=== PATIENT | female | born 2000 | race Caucasian/White ===

== ENCOUNTER 2020-11-26 01:16 | Emergency (ER) | payer OTHER, SELFPAY ==
--- NOTE | ~2020-11-26 | XR_ITS ---
EXAMINATION: XR chest 1V DATE: 11/26/2020 02:20 INDICATION: Dizziness. TECHNIQUE: A single frontal view of the chest was obtained. COMPARISON: None. FINDINGS: The chest demonstrates clear lungs without pneumonia, pleural effusion, or pneumothorax. Th e heart size is normal. IMPRESSION: 1. No acute cardiopulmonary disease. Reviewed, dictated and finalized at location A. E SCENE PHOTOGRAPHER
--- NOTE | ~2020-11-26 | CT_ITS ---
EXAMINATION: CT brain wo con DATE: 11/26/2020 02:17 INDICATION: Dizziness. TECHNIQUE: Computed tomography (CT) of the head was performed without intravenous contrast. The mA wa s adjusted according to patient size. Iterative reconstruction technique was employed. The dose-lengt h product was 605.33 mGy-cm. COMPARISON: None FINDINGS: There is no intracranial hemorrhage, acute infarction, or abnormal intracranial mass lesion . The ventricles are normal in size. There is mild mucosal thickening in the ethmoid sinuses. The orb its are normal. The mastoid air cells are normal. IMPRESSION: 1. Normal brain. Reviewed, dictated and finalized at location A. AL TECH IMPRESSION: 1. Normal brain.
[2020-11-26 01:17] VITALS: BP 140/93; PULSE 89; RESP 22; TEMP 36.8; O2SAT 100
[2020-11-26 01:23] VITALS: PULSE 81
--- NOTE | 2020-11-26 01:59 | ECG_ITS ---
Measurements Intervals [place] Rate: 60 P: 45 PA: 134 QRS: 24 QRSD: 86 T: 7 QT: 384 QTc: 384 Interpretive Statements SINUS RHYTHM EARLY PRECORDIAL R/S TRANSITION BORDERLINE ST-T WAVE ABNORMALITY- INFERIOR LEADS BASELINE ARTIFACT- I, III, AVR, AVL, AVF BORDERLINE ECG Electronically Signed On 11-26-2020 7:07:05 TONE ARTIST APPRENTICE by Octavio Arias D.O.
--- NOTE | 2020-11-26 02:00 | ED.GENADULT ---
HPI - General Adult General Chief complaint: Seizure Stated complaint: headache/ felt a seizure coming on Source: RN notes reviewed History of Present Illness HPI narrative: Patient presents emergency department from work for dizziness. Patient states approximate 7:00 tonight she began to have a headache as well as dizziness with the room spinning. She states the room spinning sensation is worse with certain movements and ambulation is better with laying down. Patient states she had been feeling fine prior to that she denies any fevers or chills vision changes chest pain shortness of breath, numbness or tingling in the extremities abdominal pain nausea vomiting or any other symptoms. 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 She states she has been under increased stress recently and there was no reported tonic-clonic activity at the work environment denies any other symptoms at this Related Data Allergies Allergy/AdvReac Type Severity Reaction Status Date / Time amoxicillin [From Augmentin] Allergy Anaphylaxis Verified 11/26/20 01:24 clavulanic acid Allergy Anaphylaxis Verified 11/26/20 01:24 [From Augmentin] Review of Systems Review of Systems: Narrative: Gen.: Denies fevers or chills Eyes: Denies eye pain or visual change ENT: Denies congestion Respiratory: Denies shortness of breath or cough CV: Denies chest pain or palpitations GI: Denies abdominal pain nausea, emesis or diarrhea denies burning, urgency, frequency or hematuria Musculoskeletal: Denies back pain or muscle pain Neuro: See HPI Skin: Denies rash Except as documented, all other systems reviewed and negative [facility] Past Medical History Medical History (Updated 11/26/20 @ 04:21 by Jeremiah Ballard DO) Pseudoseizures Social History Social History (Updated 11/26/20 @ 02:01 by Jeremiah Ballard DO) Smoking status: Never smoker Exam Narrative: Exam Narrative: APPEARANCE: No acute distress, nontoxic, resting in bed HEENT: Normocephalic, atraumatic, OMM, TMs clear bilaterally EYES: PERRL, EOMI NECK: Supple, nontender, full range of motion without pain, no meningismus RESPIRATORY: No respiratory distress, clear to auscultation bilaterally with no rhonchi wheezing or rales CARDIOVASCULAR: RRR s murmur ABDOMINAL: Soft, nontender, nondistended MUSCULOSKELETAL: Moves all extremities. No clubbing, cyanosis or edema. NEURO: A and O ?3, following commands, speech normal, no facial droop,muscle strength 5 out of 5 bilateral upper and lower extremities SKIN:: Warm, dry. Normal Color PSYCHIATRIC: Normal affect/mood Course Course Emergency Course: Patient states she is feeling much better at this time states that headache and dizziness have resolved Discussed with patient results of workup and diagnosis. Discussed need for follow-up with primary care, proper use of medication, and reasons to return to the emergency department. Patient understands and agrees to current treatment plan Vital Signs Vital signs: Vital Signs Temperature 98.3 F 11/26/20 01:17 Pulse Rate 89 11/26/20 01:17 Respiratory Rate 22 H 11/26/20 01:17 Blood Pressure 140/93 H 11/26/20 01:17 Pulse Oximetry 100 11/26/20 01:17 Temperature 98.3 F 11/26/20 01:17 Pulse Rate 81 11/26/20 01:23 Respiratory Rate 22 H 11/26/20 01:17 Blood Pressure 140/93 H 11/26/20 01:17 Pulse Oximetry 100 11/26/20 01:17 Medical Decision Making Vital Signs Vital Signs: Vital Signs Temperature 98.3 F 11/26/20 01:17 Pulse Rate 89 11/26/20 01:17 Respiratory Rate 22 H 11/26/20 01:17 Blood Pressure 140/93 H 11/26/20 01:17 Pulse Oximetry 100 11/26/20 01:17 Temperature 98.3 F 11/26/20 01:17 Pulse Rate 81 11/26/20 01:23 Respiratory Rate 22 H 11/26/20 01:17 Blood Pressure 140/93 H 11/26/20 01:17 Pulse Oximetry 100 11/26/20 01:17 Lab Da
[2020-11-26] MEDS: MECLIZINE HCL 25 MG TABLET PO (02:47)
[2020-11-26] MEDS: SODIUM CHLORIDE 0.9% IV 1,000 ML 999 ML IV CONT (02:47)
[2020-11-26 03:54] LABS: Basophils Percent Auto 0.5 % (0.2-1.2); Eosinophils Absolute Auto 0.1 K/mm3 (0-0.3); Hematocrit 36.3 % (37.0-47.0); Immature Granulocyte Absolute 0.02 K/mm3 (0.00-0.031); Immature Granulocyte Percent A 0.3 % (0-0.5); Lymphocytes Absolute Auto 1.26 K/mm3 (0.9-3.2); Mean Corpuscular HGB Conc 33.1 g/dl (32-36); Mean Corpuscular Hemoglobin 29.8 pg (26-34); Mean Corpuscular Volume 90.1 fl (80-100); Mean Platelet Volume 9.5 fl (7.4-10.4); Monocytes Absolute Auto 0.6 K/mm3 (0.1-0.6); Monocytes Percent Auto 9.4 % (2.6-8.5); Neutrophils Absolute Auto 4.4 K/mm3 (1.3-6.7); Neutrophils Percent Auto 68.8 % (45.5-73.1); Platelet Count Result 234 k/mm3 (150-375); Red Blood Count 4.03 M/mm3 (4.2-5.4); Red Cell Distribution Width 12.7 % (11.5-14.5); White Blood Count 6.3 K/mm3 (4.5-10.0)
[2020-11-26 04:06] LABS: Alanine Aminotransferase 16 U/L (4-35); Albumin Level 3.3 g/dL (3.5-5.1); Alkaline Phosphatase 77 U/L (38-126); Anion Gap 6 mmol/L (8-16); Aspartate Amino Transferase 21 U/L (14-36); Bilirubin,Total 0.4 mg/dL (0.2-1.3); Blood Urea Nitrogen 10 mg/dL (7-17); Calcium 8.2 mg/dL (8.4-10.2); Carbon Dioxide 21 mmol/L (22-30); Chloride 110 mmol/L (98-107); Estimated CRCL calculation 131 ml/min; Estimated Glomerular Filt Rate > 60; Glucose 91 mg/dL (65-105); Potassium 4.1 mmol/L (3.4-5.0); Sodium 137 mmol/L (137-145)
[2020-11-26 04:17] LABS: Add Urine Microscopic? YES; Amorphous Sediment Urine Few; Appearance Urine Cloudy (Clear); Bacteria Urine Trace /hpf; Bilirubin Urine Negative (Negative); Blood Urine Negative (Negative); Color Urine Yellow (Yellow); Glucose Urine UA Negative (Negative); Ketones Urine Trace mg/dL (Negative); Leukocyte Esterase Ur 1+ LEU/UL (Negative); Mucus Urine Heavy /lpf; Nitrate Urine Positive (Negative); Protein Urine 1+ mg/dL (Negative); Specific Grav Ur 1.024 (1.001-1.035); Squamous Epithelial Cell Urine Many /hpf (Few); Urobilinogen Urine Negative mg/dL (<2.0); WBC Urine 51-75 /hpf
[2020-11-26 04:52] VITALS: BP 132/86; PULSE 99; RESP 16; O2SAT 99
[2020-11-26] MEDS: NITROFURANTOIN MONOHYD MACROCR 100 MG CAP PO (04:52)
== END 2020-11-26 04:53 | disposition home or self-care (01) ==
PROVIDERS: Emergency Provider Emergency Medicine
DX: N39.0 Urinary tract infection, site not specified (principal); R42 Dizziness and giddiness; R94.31 Abnormal electrocardiogram [ECG] [EKG]
CPT/HCPCS: 36415; 70450; 71045; 80053; 81001; 81025; 85025; 87077; 87086; 87088; 87186; 93005; 96365; 99284; A9270; J0131; J7030